=== PATIENT | female | born 1945 | race Caucasian/White ===

== ENCOUNTER 2019-05-02 10:08 | Day surgery (SDC) | payer BC ==
[2019-05-02] MEDS ORDERED: LIDOCAINE 2% MDV (20MG/ML) 20ML VIAL IV ONE (10:09)
[2019-05-02] MEDS ORDERED: PROPOFOL 10 MG/ML VIAL IV ONE (10:09)
--- NOTE | 2019-05-06 08:20 | Operative Note ---
OPERATION: COLONOSCOPY. PREOPERATIVE DIAGNOSIS: Personal history of colon polyps. POSTOPERATIVE DIAGNOSIS: Sigmoid diverticulosis. PREPARATION QUALITY: Excellent. ESTIMATED BLOOD LOSS: None. COMPLICATIONS: None apparent. SPECIMENS: None. PROCEDURE: After informed consent was obtained from the patient, she was placed in the left lateral decubitus position in the endoscopy suite, sedated and monitored by the department of anesthesia. Digital rectal exam was unremarkable. A well-lubricated PDF257 colonoscope was inserted into the rectum and advanced with some difficulty to the cecum. The colon was quite tortuous, redundant, and significant looping occurred. I was able to ultimately achieve cecal intubation with loop reduction and torsion of the colonoscope. The preparation quality was good to excellent. The cecum, cecal bulb, ileocecal valve, appendiceal orifice, ascending colon, transverse colon, descending colon were unremarkable. The sigmoid colon demonstrated moderate diverticular changes. No polyps or mass lesions or inflammation was seen. The rectum was unremarkable in forward and J- turn views. The endoscope was straightened, the rectal ampulla deflated, and the endoscope was removed. RECOMMENDATIONS: The patient should follow a high-fiber diet. I would recommend a repeat colonoscopy in 5 years. As always, thank you for allowing me to participate in the healthcare of your patients. CELIA
== END 2019-05-02 11:55 | disposition home or self-care (01) ==
LOC: HOP 10:08
PROVIDERS: ATTEND Internal Medicine Gastroenterology
DX: Z12.11 Encounter for screening for malignant neoplasm of colon (principal); Z86.010 Personal history of colon polyps
CPT/HCPCS: 00812; G0105